=== PATIENT | female | born 1995 | race Caucasian/White ===

== ENCOUNTER 2025-02-25 11:56 | Outpatient (CLI) | payer BC, SELFPAY ==
[2025-02-25 12:22] LABS: Basophils % 0.6 % (0.1-2.0); Eosinophils # 0.1 Kmm3 (0.0-0.4); Eosinophils % 1.4 % (0.1-12.0); Hematocrit 41.6 % (37.0-47.0); Hemoglobin 13.6 g/dL (12.2-16.2); Immature Granulocytes # 0.02 10^3uL; Immature Granulocytes % 0.3 %; Lymphocytes # 2.1 K/mm3 (0.7-4.5); Lymphocytes % 28.8 % (10-50); Mean Corpuscular HGB Conc 32.7 g/dL (31.8-35.4); Mean Corpuscular Hemoglobin 31.1 pg (27.0-31.2); Mean Corpuscular Volume 95.2 fl (81-99); Mean Platelet Volume 10.5 fl (7.4-10.4); Monocytes # 0.5 K/mm3 (0.1-1.0); Monocytes % 6.3 % (1.7-9.3); Neutrophils # 4.5 K/mm3 (1.8-7.8); Neutrophils % 62.6 % (37.0-80.0); Nucleated Red Blood Cells # 0 10^3/uL; Nucleated Red Blood Cells % 0 %; Platelet Count 253 K/mm3 (142-424); Red Blood Count 4.37 M/mm3 (4.20-5.40); Red Cell Distribution Width 11.9 % (11.5-17.5); White Blood Count 7.1 K/mm3 (4.8-10.8)
[2025-02-25 12:47] LABS: Albumin Level 4.7 g/dl (3.5-5.0); Chloride 107 mmol/L (98-107); Sodium 139 mmol/L (136-145)
[2025-02-25 12:48] LABS: Potassium 4.5 mmoL/L (3.5-5.1)
[2025-02-25 12:50] LABS: Alanine Aminotransferase 22 U/L (12-78); Albumin/Globulin Ratio 1.8 (1.1-1.8); Alkaline Phosphatase 67 U/L (38-126); Anion Gap 9.5 mEq/L (5-15); Aspartate Amino Transferase 24 U/L (14-36); Bilirubin,Total 0.8 mg/dl (0.2-1.3); Blood Urea Nitrogen 7 mg/dl (7-17); Calcium 9.7 mg/dl (8.4-10.2); Carbon Dioxide 27 mmol/L (22.0-30.0); Estimated Glomerular Filt Rate 117 ml/min (>60); GFR (African American) 141 ML/MIN (>60); Globulin 2.6 g/dL (1.3-3.2); Glucose 86 mg/dl (74-100); Iron 139 ug/dL (37-170); Total Protein,Serum 7.3 g/dl (6.3-8.2)
[2025-02-25 13:01] LABS: Total Iron Binding Capacity 351 ug/dL (265-497)
[2025-02-25 13:02] LABS: Erythrocyte Sedimentation Rate 1 mm/hr (0-20)
[2025-02-25 13:08] LABS: 25-OH Vitamin D, Total 44.4 ng/mL (30-100)
[2025-02-25 13:20] LABS: C-Reactive Protein < 0.3 mg/L (0-4)
[2025-02-25 13:28] LABS: Ferritin 21.1 ng/ml (6.24-137)
[2025-02-25 14:42] LABS: Vitamin B12 633 pg/mL (239-931)
[2025-02-27 14:11] LABS: QuantiFERON-TB Gold Plus Negative (Negative)
== END 2025-02-25 23:59 | disposition home or self-care (01) ==
LOC: LAB 11:57
PROVIDERS: Visit Provider Nurse Practitioner Family
DX: K50.10 Crohn's disease of large intestine without complications (principal); Z68.20 Body mass index [BMI] 20.0-20.9, adult
CPT/HCPCS: 36415; 80053; 82306; 82607; 82728; 83540; 83550; 85025; 85651; 86140; 86480